=== PATIENT | male | born 1990 | race Caucasian/White ===

== ENCOUNTER 2020-11-12 15:36 | Emergency (ER) | payer OTHER ==
[~2020-11-12] VITALS: Ht 177.8 cm; Wt 81.7 kg
[2020-11-12 15:49] VITALS: BP 126/88
== END 2020-11-12 16:45 | disposition home or self-care (01) ==
LOC: ER 15:36
DX: S93.401A Sprain of unspecified ligament of right ankle, initial encounter (principal); X50.1XXA Overexertion from prolonged static or awkward postures, initial encounter; Y93.89 Activity, other specified; Y92.89 Other specified places as the place of occurrence of the external cause; Y99.8 Other external cause status

== ENCOUNTER 2021-10-12 20:28 | Emergency (ER) | payer OTHER ==
[~2021-10-12] VITALS: Ht 177.8 cm; Wt 81.7 kg
[2021-10-12 21:22] LABS: ABSOLUTE NEUTROPHILS 8.6 thou/uL (1.4-8.2); BASOPHILS 0.6 % (0.0-2.0); HEMATOCRIT 43.7 % (42.0-52.0); LYMPHOCYTES 17.3 % (24.0-44.0); MCH 29.3 pg (26.0-34.0); MCHC 34.4 g/dL (28.0-37.0); MCV 85.3 fL (80.0-100.0); MONOCYTES 5.7 % (1.0-8.0); PLATELET COUNT 222 thou/uL (150-400); POLYS 74.4 % (36.0-66.0); RBC 5.13 mil/uL (4.50-6.00); RDW 13.3 % (10.5-14.5); WBC 11.5 thou/uL (4.0-11.0)
[2021-10-12 21:25] LABS: CALCIUM 8.6 mg/dL (8.5-10.1); CREATININE 1.2 mg/dL (0.7-1.3)
[2021-10-12 21:39] LABS: TOTAL PROTEIN 7.3 g/dL (6.4-8.2)
[2021-10-12 23:26] LABS: URINE BILIRUBIN NEGATIVE (Negative); URINE BLOOD 2+ (Negative); URINE CLARITY SL CLOUDY; URINE COLOR ORANGE; URINE GLUCOSE-RANDOM* NEGATIVE (Negative); URINE KETONES NEGATIVE (Negative); URINE PROTEIN (DIPSTICK) 2+ (Negative); URINE SPECIFIC GRAVITY >= 1.030 (1.005-1.035)
[2021-10-12 23:27] LABS: URINE LEUKOCYTES-REFLEX 1+ (Negative); URINE NITRITE-REFLEX POSITIVE (Negative)
[2021-10-12 23:38] LABS: SQUAMOUS None Seen /LPF (0-3)
[2021-10-12 23:39] LABS: BACTERIA-REFLEX >30 Many /HPF (None Seen); CASTS None Seen /LPF (None Seen); CRYSTALS None Seen /LPF (None Seen); MUCUS 0-3 Light strn/LPF (None Seen); URINE WBC-REFLEX >25 Many /HPF (0-5)
[2021-10-12] MEDS ORDERED: METHOCARBAMOL500 M2 PO (23:48)
[2021-10-12] MEDS ORDERED: CEPHALEXIN500 MG PO (23:48)
[2021-10-12] MEDS ORDERED: IBUPROFEN 800800 MG PO (23:48)
[2021-10-12] MEDS ORDERED: ZOFRAN ODT4 MG PO (23:48)
[2021-10-13 00:53] VITALS: BP 118/71
== END 2021-10-13 00:54 | disposition home or self-care (01) ==
LOC: ER 20:28
PROVIDERS: Emergency Medicine
DX: N20.0 Calculus of kidney (principal); R31.9 Hematuria, unspecified; N39.0 Urinary tract infection, site not specified